=== PATIENT | female | born 1960 | race Asian ===

== ENCOUNTER → 2016-11-16 | Outpatient (CLI) | payer OTHER | LOC: CIMAGING 14:30 | DX: Z12.31 Encounter for screening mammogram for malignant neoplasm of breast (principal) | CPT/HCPCS: G0202 ==

== ENCOUNTER → 2017-10-01 | Outpatient (CLI) | payer OTHER | LOC: CIMAGING 14:17 | PROVIDERS: ATTEND Internal Medicine Pulmonary Disease | DX: R05 Cough (principal) | CPT/HCPCS: 71046-PO ==

== ENCOUNTER → 2018-04-18 | Outpatient (CLI) | payer OTHER | LOC: CIMAGING 08:49 | PROVIDERS: ATTEND Family Medicine | DX: Z12.31 Encounter for screening mammogram for malignant neoplasm of breast (principal) ==